=== PATIENT | female | born 1960 | race Caucasian/White ===

== ENCOUNTER 2018-03-06 01:37 | Inpatient (IN) | payer MEDICAID ==
[~2018-03-06] VITALS: Ht 157.5 cm; Wt 63.6 kg
[2018-03-06 02:10] LABS: BASOPHILS 0.4 % (0-2); EOSINOPHILS 0.9 % (0-7); HEMATOCRIT 42.5 % (36.0-48.0); HEMOGLOBIN 14.5 g/dL (12-16); IMMATURE GRANULOCYTES 0.3 % (0-5); LYMPHOCYTES 29.9 % (15-50); MCH 31.3 pg (26.0-34.0); MCHC 34.1 g/dL (31.0-37.0); MCV 91.6 fL (80.0-100.0); MEAN PLATELET VOLUME 9.8 fL (7.4-10.4); NEUTROPHILS 60.5 % (40-80); PLATELET COUNT 215 10x3/uL (130-400); RBC 4.64 10x6/uL (4.00-5.40); RDW 13.5 % (11.5-14.5); WBC 11.5 10x3/uL (4.8-10.8)
[2018-03-06 02:20] LABS: APTT 26.6 SECONDS (22.8-39.4); INR 0.88 (0.85-1.17); PROTIME 11.6 SECONDS (11.6-15.0)
[2018-03-06 02:21] LABS: D-DIMER-QUANTITATIVE 2.45 ug/mLFEU (0.20-0.54)
[2018-03-06 02:34] LABS: ALBUMIN 3.7 g/dL (3.4-5.0); ALKALINE PHOSPHATASE 86 U/L (46-116); ALT (SGPT) 27 U/L (10-68); BILIRUBIN - TOTAL 0.36 mg/dL (0.2-1.3); CALC OSMOLALITY 280 mosm/kg (275-300); CALCIUM 9.3 mg/dL (8.5-10.1); CARBON DIOXIDE 29.5 mmol/L (21.0-32.0); CHLORIDE - SERUM 104 mmol/L (98-107); CREATININE - SERUM 0.8 mg/dL (0.6-1.3); GLUCOSE 103 mg/dL (74-106); POTASSIUM - SERUM 3.8 mmol/L (3.5-5.1); PROTEIN - SERUM 7.6 g/dL (6.4-8.2); SODIUM 140 mmol/L (136-145); UREA NITROGEN 17 mg/dL (7-18); eGFR NON AFRICAN AMERICAN 77 mL/min (90-120)
[2018-03-06 02:50] LABS: CHOL - HDL RATIO 4.3 ratio (2.3-4.1); CHOLESTEROL, TOTAL 270 mg/dL (0-200); CKMB 1.3 U/L (0.0-3.6); CREATINE KINASE 128 UL (21-215); HDL CHOLESTEROL 63 mg/dL (32-96); LDL CHOLESTEROL 173 mg/dL (0-100); LDL-HDL RATIO 2.7 ratio (1.5-3.5); TRIGLYCERIDE 172 mg/dL (30-200)
[2018-03-06 02:51] LABS: TROPONIN-I < 0.017 ng/mL (0.000-0.060)
[2018-03-06 12:27] LABS: T4 THYROXIN - FREE 0.92 ng/dL (0.76-1.46); THYROID STIMULATING HORMONE 3.56 uIU/mL (0.36-3.74)
[2018-03-06 20:48] VITALS: BP 103/57
[2018-03-07 04:45] VITALS: BP 115/55
[2018-03-07] MEDS ORDERED: PEPCID40 MG PO (04:52)
[2018-03-07 04:56] VITALS: Ht 157.5 cm; Wt 63.6 kg
[2018-03-07 06:20] LABS: BASOPHILS 0.5 % (0-2); EOSINOPHILS 1.7 % (0-7); HEMATOCRIT 38.7 % (36.0-48.0); HEMOGLOBIN 12.7 g/dL (12-16); IMMATURE GRANULOCYTES 0.3 % (0-5); LYMPHOCYTES 39.2 % (15-50); MCH 30.7 pg (26.0-34.0); MCHC 32.8 g/dL (31.0-37.0); MCV 93.5 fL (80.0-100.0); MEAN PLATELET VOLUME 10.1 fL (7.4-10.4); MONOCYTES 8.7 % (2-11); NEUTROPHILS 49.6 % (40-80); PLATELET COUNT 196 10x3/uL (130-400); RBC 4.14 10x6/uL (4.00-5.40); RDW 13.8 % (11.5-14.5)
[2018-03-07 06:26] LABS: WBC 6.5 10x3/uL (4.8-10.8)
[2018-03-07 06:42] LABS: ALKALINE PHOSPHATASE 78 U/L (46-116); ALT (SGPT) 22 U/L (10-68); CALC OSMOLALITY 285 mosm/kg (275-300); CALCIUM 8.8 mg/dL (8.5-10.1); CARBON DIOXIDE 26.8 mmol/L (21.0-32.0); CHLORIDE - SERUM 107 mmol/L (98-107); CREATININE - SERUM 0.7 mg/dL (0.6-1.3); GLUCOSE 104 mg/dL (74-106); PROTEIN - SERUM 6.3 g/dL (6.4-8.2); SODIUM 143 mmol/L (136-145); UREA NITROGEN 15 mg/dL (7-18); eGFR NON AFRICAN AMERICAN 90 mL/min (90-120)
[2018-03-07 06:43] LABS: POTASSIUM - SERUM 4.5 mmol/L (3.5-5.1)
[2018-03-07 08:04] VITALS: BP 109/66
[2018-03-07 11:08] VITALS: BP 108/54
[2018-03-07 15:41] VITALS: BP 99/62
[2018-03-07] MEDS ORDERED: NICODERM C1 PATCH .1 TRANSDERM (16:31)
[2018-03-07] MEDS ORDERED: PROTONIX40 MG PO (16:32)
[2018-03-07] MEDS ORDERED: ELIQUIS5 MG PO ×2 (16:36→16:37)
[2018-03-07 20:27] VITALS: BP 109/37
[2018-03-07 23:35] VITALS: BP 110/45
[2018-03-08 04:27] VITALS: BP 98/48
[2018-03-08 08:10] VITALS: BP 121/64
[2018-03-08] MEDS ORDERED: CHANTIX0.5 MG PO (10:26)
== END 2018-03-08 10:33 | disposition home or self-care (01) | DRG 175 ==
LOC: D.ER 01:37 → D.MS 05:02 → D.EDHOLD 05:02 → D.MS 18:26
PROVIDERS: Family Medicine; Internal Medicine Nephrology; Physician Assistant Medical
DX: I26.99 Other pulmonary embolism without acute cor pulmonale (principal); J96.01 Acute respiratory failure with hypoxia; F17.203 Nicotine dependence unspecified, with withdrawal; E78.5 Hyperlipidemia, unspecified; I07.1 Rheumatic tricuspid insufficiency

== ENCOUNTER → 2018-05-14 20:18 | Outpatient (CLI) | payer MEDICAID ==
[2018-03-07 04:56] VITALS: BMI 25.6
[~2018-05-14 20:18] MED LIST: CHANTIX0.5 MG PO; ELIQUIS5 MG PO; NICODERM C1 PATCH .1 TRANSDERM; PEPCID40 MG PO; PROTONIX40 MG PO
== END | disposition home or self-care (01) ==
LOC: D.MAMMO 16:15
DX: Z12.31 Encounter for screening mammogram for malignant neoplasm of breast (principal)

== ENCOUNTER → 2018-06-11 15:56 | Outpatient (CLI) | payer MEDICAID ==
[2018-03-07 04:56] VITALS: BMI 25.6
== END | disposition home or self-care (01) ==
LOC: D.MAMMO 09:30
DX: R92.8 Other abnormal and inconclusive findings on diagnostic imaging of breast (principal)

== ENCOUNTER → 2018-06-27 12:36 | Outpatient (CLI) | payer MEDICAID ==
[2018-03-07 04:56] VITALS: BMI 25.6
== END | disposition home or self-care (01) ==
LOC: D.US 12:36
DX: R92.8 Other abnormal and inconclusive findings on diagnostic imaging of breast (principal)

== ENCOUNTER 2019-02-08 10:15 | Emergency (ER) | payer MEDICAID ==
[2019-02-08 10:21] VITALS: BMI 25.6
[2019-02-08] MEDS ORDERED: AUGMENTIN 875-11 TAB PO (12:54)
[2019-02-08 13:06] VITALS: BP 119/65
== END 2019-02-08 13:07 | disposition home or self-care (01) ==
LOC: D.ER 10:15
DX: S09.90XA Unspecified injury of head, initial encounter (principal); W22.8XXA Striking against or struck by other objects, initial encounter; Y93.89 Activity, other specified; Y92.019 Unspecified place in single-family (private) house as the place of occurrence of the external cause; J32.0 Chronic maxillary sinusitis; R00.1 Bradycardia, unspecified

== ENCOUNTER 2019-02-12 14:13 | Emergency (ER) | payer MEDICAID ==
[~2019-02-12] VITALS: Ht 157.5 cm; Wt 63.6 kg
[~2019-02-12 14:13] MED LIST changes: +AUGMENTIN 875-11 TAB PO
[2019-02-12 14:21] VITALS: Ht 157.5 cm; Wt 63.6 kg
[2019-02-12 16:04] LABS: BASOPHILS 0.6 % (0-2); EOSINOPHILS 2.1 % (0-7); HEMATOCRIT 37.8 % (36.0-48.0); HEMOGLOBIN 12.8 g/dL (12-16); LYMPHOCYTES 42.6 % (15-50); MCH 30.3 pg (26.0-34.0); MCHC 33.9 g/dL (31.0-37.0); MCV 89.6 fL (80.0-100.0); MEAN PLATELET VOLUME 9.8 fL (7.4-10.4); MONOCYTES 9.6 % (2-11); NEUTROPHILS 45.1 % (40-80); PLATELET COUNT 229 10x3/uL (130-400); RBC 4.22 10x6/uL (4.00-5.40); RDW 13.3 % (11.5-14.5); WBC 4.8 10x3/uL (4.8-10.8)
[2019-02-12 16:19] LABS: ALBUMIN 3.5 g/dL (3.4-5.0); ALKALINE PHOSPHATASE 83 U/L (46-116); ALT (SGPT) 31 U/L (10-68); CALC OSMOLALITY 281 mosm/kg (275-300); CALCIUM 8.8 mg/dL (8.5-10.1); CARBON DIOXIDE 25.4 mmol/L (21.0-32.0); CHLORIDE - SERUM 106 mmol/L (98-107); CREATININE - SERUM 0.8 mg/dL (0.6-1.3); GLUCOSE 101 mg/dL (74-106); POTASSIUM - SERUM 4.3 mmol/L (3.5-5.1); PROTEIN - SERUM 6.9 g/dL (6.4-8.2); SODIUM 141 mmol/L (136-145); UREA NITROGEN 16 mg/dL (7-18); eGFR NON AFRICAN AMERICAN 77 mL/min (90-120)
[2019-02-12 16:27] LABS: APTT 30.6 SECONDS (22.8-39.4); INR 1.01 (0.85-1.17); PROTIME 12.8 SECONDS (11.6-15.0)
[2019-02-12 16:30] VITALS: BP 123/65
[2019-02-12 16:30] LABS: CKMB 0.7 U/L (0.0-3.6); CREATINE KINASE 83 UL (21-215); MAGNESIUM - SERUM 2.1 mg/dL (1.8-2.4)
[2019-02-12 16:34] LABS: TROPONIN-I < 0.017 ng/mL (0.000-0.060)
== END 2019-02-12 18:24 | disposition home or self-care (01) ==
LOC: D.ER 14:13
PROVIDERS: Emergency Medicine
DX: R00.1 Bradycardia, unspecified (principal); F41.1 Generalized anxiety disorder; F13.239 Sedative, hypnotic or anxiolytic dependence with withdrawal, unspecified